=== PATIENT | female | born 1970 | race American Indian/Alaskan Native ===

== ENCOUNTER 2016-07-24 14:48 | Outpatient (CLI) | payer OTHER ==
--- NOTE | 2016-07-25 13:39 | Mammography Report ---
BILATERAL DIGITAL SCREENING MAMMOGRAM with CAD: 07/24/16 14:48:00 CLINICAL: Routine screening. COMPARISON:None available. FINDINGS: The breasts are heterogeneously dense, which may obscure small masses. No mass, architectural distortion or suspicious calcifications. IMPRESSION: No mammographic evidence of malignancy. BI-RADS CATEGORY: 1 - - Negative RECOMMENDATION: Routine mammographic screening in one year. COMMENT: Patient follow-up letters are generated by our [employer] application. The
== END 2016-07-24 14:49 | disposition home or self-care (01) ==
LOC: SPVWC 14:48
PROVIDERS: ATTEND Internal Medicine Hematology & Oncology
DX: Z12.31 Encounter for screening mammogram for malignant neoplasm of breast (principal)
CPT/HCPCS: 77067; G0202

== ENCOUNTER 2017-09-24 13:38 | Outpatient (CLI) | payer BC ==
--- NOTE | 2017-09-24 14:58 | Mammography Report ---
BILATERAL MAMMOGRAM: FINDINGS: The breast tissue is extremely dense (>75% glandular). This may lower the sensitivity of mammography. No mass, distortion, suspicious calcification, or skin change is seen. No significant change compared to prior examination in July 2016. CAD was utilized. IMPRESSION: Negative mammogram. There is no mammographic evidence of malignancy. RECOMMENDATION: Follow-up per ACS guidelines. BI-RADS CATEGORY: 1 = Negative ACR BI-RADS MAMMOGRAPHIC CODES: 0 = Needs additional imaging evaluation; 1 = Negative; 2 = Benign; 3 = Probably benign; 4 = Suspicious; 5 = Malignant; 6 = Known biopsy-proven malignancy COMMENT: 1. Dense breast tissue, i.e., adenosis, fibrocystic changes, etc., may obscure an underlying neoplasm. 2. Approximately 10% of cancers are not detected with mammography. 3. A negative mammography report should not delay biopsy if a clinically suspicious mass is present. COMMENT: Patient follow-up letters are generated in [employer].
== END 2017-09-24 13:39 | disposition home or self-care (01) ==
LOC: SPVWC 13:38
PROVIDERS: ATTEND Obstetrics & Gynecology
DX: Z12.31 Encounter for screening mammogram for malignant neoplasm of breast (principal)
CPT/HCPCS: 77067

== ENCOUNTER 2017-09-30 06:52 | Observation (INO) | payer BC ==
[2017-09-30 08:17] LABS: Basophils % (Auto) 0.4 % (0.0-1.8); Eosinophils % (Auto) 0.5 % (0.0-4.3); Hematocrit 21.2 % (30.3-42.9); Lymphocytes # (Auto) 1.2 K/mm3 (1.2-5.4); Lymphocytes % (Auto) 11.6 % (13.4-35.0); Mean Corpuscular HGB Conc 33 % (30-34); Mean Corpuscular Hemoglobin 29 pg (28-32); Mean Corpuscular Volume 88 fl (79-97); Monocytes # (Auto) 0.5 K/mm3 (0.0-0.8); Platelet Count 405 K/mm3 (140-440); Red Blood Count 2.41 M/mm3 (3.65-5.03); Red Cell Distribution Width 17.5 % (13.2-15.2)
--- NOTE | 2017-09-30 10:27 | Emergency Department Report ---
ED General Adult HPI - General Chief complaint: Vaginal Bleeding Stated complaint: STOMACH PAIN Time Seen by Provider: 09/30/17 10:20 Source: patient, family Mode of arrival: Ambulatory Limitations: No Limitations - History of Present Illness Initial comments: 47 year old female with recurrent vaginal bleeding symptoms of anemia, weakness and dyspnea on exertion. Patient states that she has been taking her Provera since her discharge the beginning of the month for the same. She was transfused 2 units of blood. She was symptomatic with hemoglobin of 8.4 at that time. She was found to have a hemoglobin of 7 today. She was referred to Dr. Clements and transfused in the emergency department. Patient states that she has been having periodic bleeding today. She is not actively bleeding at the time of my encounter but has passed some clots earlier. She had some nausea and vomited once in the waiting room. -: Gradual Consistency: intermittent (vaginal bleeding) Improves with: none Worsens with: none Associated Symptoms: denies other symptoms, weakness Treatments Prior to Arrival: none - Related Data Previous Rx's Medication Instructions Recorded Last Taken Type Ferrous Sulfate [Iron] 325 mg PO BID #60 tablet 09/11/17 Unknown Rx medroxyPROGESTERone ACETATE 10 mg PO BID #20 tablet 09/11/17 Unknown Rx [Provera] Allergies Allergy/AdvReac Type Severity Reaction Status Date / Time No Known Allergies Allergy Verified 09/10/17 23:18 ED Review of Systems ROS: Stated complaint: STOMACH PAIN Other details as noted in HPI Constitutional: denies: chills, fever Eyes: denies: eye pain, eye discharge, vision change ENT: denies: ear pain, throat pain Respiratory: denies: cough, shortness of breath, wheezing Cardiovascular: denies: chest pain, palpitations Endocrine: no symptoms reported Gastrointestinal: denies: abdominal pain, nausea, diarrhea Genitourinary: as per HPI, abnormal menses. denies: urgency, dysuria, discharge Musculoskeletal: denies: back pain, joint swelling, arthralgia Skin: denies: rash, lesions Neurological: denies: headache, weakness, paresthesias Psychiatric: denies: anxiety, depression Hematological/Lymphatic: denies: easy bleeding, easy bruising ED Past Medical Hx - Past Medical History Additional medical history: anemia, fibroids,ovarian cyst - Surgical History Additional Surgical History: D&C,nodules on vocal cords - Social History Smoking Status: Never Smoker - Medications Home Medications: Home Medications Medication Instructions Recorded Confirmed Last Taken Type Ferrous Sulfate [Iron] 325 mg PO BID #60 tablet 09/11/17 Unknown Rx medroxyPROGESTERone ACETATE 10 mg PO BID #20 tablet 09/11/17 Unknown Rx [Provera] ED Physical Exam - General Limitations: No Limitations General appearance: alert, in no apparent distress, other (somewhat pale) - Head Head exam: Present: atraumatic, normocephalic - Eye Eye exam: Present: normal appearance, PERRL, EOMI. Absent: scleral icterus - ENT ENT exam: Present: mucous membranes moist - Neck Neck exam: Present: normal inspection - Respiratory Respiratory exam: Present: normal lung sounds bilaterally. Absent: respiratory distress - Cardiovascular Cardiovascular Exam: Present: regular rate, normal rhythm. Absent: systolic murmur, diastolic murmur, rubs, gallop - GI/Abdominal GI/Abdominal exam: Present: soft, normal bowel sounds. Absent: distended, tenderness, guarding, rebound, rigid - Extremities Exam Extremities exam: Present: normal inspection - Back Exam Back exam: Present: normal inspection - Neurological Exam Neurological exam: Present: alert, oriented X3, CN II-XII intact. Absent: motor sensory deficit - Psychiatric Psychiatric exam: Present: normal affect, normal mood - Skin Skin exam: Present: warm, dry, intact, normal color. Absent: rash ED Course Vital Signs 09/30/17 09/30/17 09/30/17 07:39 11:39 11:56 Temperature 97.5 F L 98.4 F 98.5 F Pulse Rate 82 90 87 Respiratory 16 18 18 Rate Blood Pressure 94/69 115/72 115/70 O2 Sat by Pulse 98 100 99 Oximetry 09/30/17 09/30/17 12:30 12:50 Temperature 98.5 F 98.4 F Pulse Rate 87 89 Respiratory 18 18 Rate Blood Pressure 119/71 120/55 O2 Sat by Pulse 100 99 Oximetry - Reevaluation(s) Reevaluation #1: I spoke with Dr. Clements. Transfusion was ordered. Patient was admitted by Dr. Clements for further care and evaluation. He stated he had spoken to the patient recently. He will check the patient's records and decide on hormonal intervention at this time. 09/30/17 19:31 ED Medical Decision Making - Lab Data Result diagrams: 09/30/17 16:06 09/30/17 10:43 Laboratory Results - last 24 hr 09/30/17 09/30/17 09/30/17 07:55 07:55 07:55 WBC 10.5 RBC 2.41 L Hgb 7.0 L Hct 21.2 L MCV 88 MCH 29 MCHC 33 RDW 17.5 H Plt Count 405 Lymph % (Auto) 11.6 L [place] % (Auto) 5.0 Eos % (Auto) 0.5 Baso % (Auto) 0.4 Lymph # 1.2 [place] # 0.5 Eos # 0.0 Baso # 0.0 Seg Neutrophils % 82.5 H Seg Neutrophils # 8.7 H HCG, Quant < 2 Blood Type O POSITIVE Antibody Screen Negative Critical care attestation.: If time is entered above; I have spent that time in minutes in the direct care of this critically ill patient, excluding procedure time. ED Disposition Clinical Impression: Dysfunctional uterine bleeding Anemia Qualifiers: Anemia type: iron deficiency Iron deficiency anemia type: chronic blood loss Qualified Code(s): D50.0 - Iron deficiency anemia secondary to blood loss ( chronic) Disposition: OP ADMIT IP TO THIS HOSP Is pt being admited?: Yes Does the pt Need Aspirin: No Condition: Stable Time of Disposition: 19:33
[2017-09-30] MEDS ORDERED: NACL 0.9% 1000 ML 1,000 ML IV ONE (10:28)
[2017-09-30] MEDS ORDERED: NACL 0.9% 500 ML 500 ML IV ONE ×2 (10:28→19:00)
[2017-09-30] MEDS ORDERED: ZOFRAN IV ONE (10:54)
[2017-09-30 11:01] LABS: INR 0.93 (0.87-1.13); Partial Thromboplastin Time 22.9 Sec. (24.2-36.6)
[2017-09-30 11:09] LABS: Alanine Aminotransferase 11 units/L (7-56); Albumin 3.7 g/dL (3.9-5); BUN/Creatinine Ratio 10; Blood Urea Nitrogen 6 mg/dL (7-17); Calcium 8.6 mg/dL (8.4-10.2); Hemolysis Index 2
--- NOTE | 2017-09-30 11:23 | XRay Report ---
AP CHEST :09/30/17 10:33 CLINICAL: Hypotension. COMPARISON:None. FINDINGS: Normal heart and pulmonary vasculature. The lungs are normally expanded and clear. The bones and soft tissues are normal. IMPRESSION: Normal chest.
[2017-09-30 11:30] LABS: Bilirubin,Direct < 0.2 mg/dL (0-0.2)
[2017-09-30] MEDS ORDERED: MOTRIN PO PRN ×2 (15:35→15:39)
[2017-09-30] MEDS ORDERED: TYLENOL PO PRN (15:35)
[2017-09-30] MEDS ORDERED: SODIUM CHLORIDE FLUSH SYRINGE 10 ML IV PRN (15:35)
[2017-09-30] MEDS ORDERED: NACL 0.9% 1000 ML 1,000 ML IV SCH (15:35)
[2017-09-30] MEDS ORDERED: ZOFRAN IV PRN (15:35)
[2017-09-30] MEDS ORDERED: PREMARIN IV ONE (16:00)
[2017-09-30 16:16] LABS: Hematocrit 24.6 % (30.3-42.9); Hemoglobin 7.8 gm/dl (10.1-14.3)
--- NOTE | 2017-09-30 18:26 | History and Physical Report ---
History of Present Illness Date of examination: 09/30/17 Date of admission: 09/30/17 13:43 History of present illness: 47 YOBF [id number] was recently discharged from the hospital due to menometrorrhagia and severe anemia less than 3 weeks ago. At that time she received 2 units of packed red blood cells and discharge on Provera. Patient has been on Provera since states that had continuous bleeding which became heavy days ago states last night she got lightheaded and briefly lost consciousness and was brought to the emergency room where her hemoglobin was 7.0 last recorded hemoglobin was 11.4. Patient with history of heavy menstrual cycles and leiomyomata. Patient received 1 unit of packed red blood cells in the emergency room with resultant hemoglobin 7.8 patient still symptomatic with lightheadedness and during the hospital bed and be admitted for additional units of packed red blood cells. Past History Past Medical History: other (leiomyomata) Past Surgical History: Other (D&C) Social history: , full code Medications and Allergies Allergies Allergy/AdvReac Type Severity Reaction Status Date / Time No Known Allergies Allergy Verified 09/10/17 23:18 Home Medications Medication Instructions Recorded Confirmed Last Taken Type Ferrous Sulfate [Iron] 325 mg PO BID #60 tablet 09/11/17 Unknown Rx medroxyPROGESTERone ACETATE 10 mg PO BID #20 tablet 09/11/17 Unknown Rx [Provera] Active Meds: Active Medications Acetaminophen (Tylenol) 650 mg PO Q4H PRN PRN Reason: Pain MILD(1-3)/Fever >100.5/MARTIN Docusate Sodium (Colace) 100 mg PO BID MARIEL Ferrous Sulfate (Feosol) 325 mg PO BID [facility] Sodium Chloride (Nacl 0.9% 1000 Ml) 1,000 mls @ 100 mls/hr IV DIRECT MARIEL Last Admin: 09/30/17 16:31 Dose: 100 mls/hr Ibuprofen (Motrin) 800 mg PO Q6H PRN PRN Reason: Pain, Mild (1-3) Ondansetron HCl (Zofran) 4 mg IV Q8H PRN PRN Reason: Nausea And Vomiting Sodium Chloride (Sodium Chloride Flush Syringe 10 Ml) 10 ml IV BID MARIEL Sodium Chloride (Sodium Chloride Flush Syringe 10 Ml) 10 ml IV PRN PRN PRN Reason: LINE FLUSH Review of Systems Constitutional: no weight loss, no fever, no chills, no anorexia Cardiovascular: shortness of breath (now resolved) Genitourinary Female: menorrhagia Menstruation: currently menstrual Psychiatric: anxiety Exam - Constitutional Vitals: Temp Pulse Resp BP Pulse Ox 98.3 F 95 H 18 122/63 99 09/30/17 15:45 09/30/17 15:45 09/30/17 15:45 09/30/17 15:45 09/30/17 12:50 General appearance: Present: no acute distress - Neck Neck: Present: supple - Respiratory Respiratory effort: normal - Cardiovascular Rhythm: regular - Extremities Extremities: no ischemia - Abdominal General gastrointestinal: Present: soft, non-tender Female genitourinary: Present: other (small to moderate amount of blood and pad manual exam deferred) - Rectal Rectal Exam: deferred - Integumentary Integumentary: Present: clear, warm, dry - Psychiatric Psychiatric: appropriate mood/affect, intact judgment & insight Results - Labs CBC & Chem 7: 09/30/17 16:06 09/30/17 10:43 Labs: Abnormal lab results 09/30/17 09/30/17 09/30/17 Range/Units 07:55 07:55 10:43 RBC 2.41 L (3.65-5.03) M/mm3 Hgb 7.0 L (10.1-14.3) gm/dl Hct 21.2 L (30.3-42.9) % RDW 17.5 H (13.2-15.2) % Lymph % (Auto) 11.6 L (13.4-35.0) % Seg Neutrophils % 82.5 H (40.0-70.0) % Seg Neutrophils # 8.7 H (1.8-7.7) K/mm3 APTT 22.9 L (24.2-36.6) Sec. BUN (7-17) mg/dL Creatinine (0.7-1.2) mg/dL Glucose (65-100) mg/dL Albumin (3.9-5) g/dL Crossmatch See Detail 09/30/17 09/30/17 Range/Units 10:43 16:06 RBC (3.65-5.03) M/mm3 Hgb 7.8 L (10.1-14.3) gm/dl Hct 24.6 L (30.3-42.9) % RDW (13.2-15.2) % Lymph % (Auto) (13.4-35.0) % Seg Neutrophils % (40.0-70.0) % Seg Neutrophils # (1.8-7.7) K/mm3 APTT (24.2-36.6) Sec. BUN 6 L (7-17) mg/dL Creatinine 0.6 L (0.7-1.2) mg/dL Glucose 150 H (65-100) mg/dL Albumin 3.7 L (3.9-5) g/dL Crossmatch Assessment and Plan - Patient Problems (1) Fibroids Current Visit: Yes Status: Chronic Qualifiers: Uterine leiomyoma location: intramural Qualified Code(s): D25.1 - Intramural leiomyoma of uterus Plan to address problem: Possible etiology problem 3 (2) Symptomatic anemia Current Visit: Yes Status: Chronic Plan to address problem: l secondary to some problem 3. Transfuse additional 2 units of packed red blood cells (3) Excessive and frequent menstruation with irregular cycle Current Visit: Yes Status: Chronic Plan to address problem: We'll give IV Premarin. Patient has failed outpatient treatment with Provera on 2 separate occasion. Discussed with the patient and is temporary treatment for symptoms. Discussed long-term treatment including hormonal treatments, endometrial ablation and operative treatment for her fibroids including myomectomy and hysterectomy. Patient expressed desire to become . Patient has been seeing a vending machine mechanic in the past. I expressed to the patient that she needs to quickly follow-up if her goal is to become soon. Also discussed other treatments which will decreased her ability to become . Questions answered patient understands and will follow-up as outpatient.
[2017-09-30] MEDS ORDERED: BENADRYL PO ONE ×2 (20:17→20:30)
[2017-09-30 21:14] LABS: Bilirubin,Urine NEG (Negative); Blood,Urine LG (Negative); Protein,Urine <15 mg/dL mg/dL (Negative); Urobilinogen,Urine < 2.0 mg/dL (<2.0)
[2017-09-30 21:15] LABS: Color,Urine Red (Yellow); RBC,Urine > 182.0 /HPF (0.0-6.0)
[2017-09-30] MEDS ORDERED: SODIUM CHLORIDE FLUSH SYRINGE 10 ML IV SCH (22:00)
[2017-09-30] MEDS: FEOSOL PO SCH (22:40)
[2017-09-30] MEDS: COLACE PO SCH (22:40)
[2017-10-01 05:57] LABS: Hematocrit 30.8 % (30.3-42.9); Hemoglobin 10.2 gm/dl (10.1-14.3)
[2017-10-01] MEDS: COLACE PO SCH ×2 (10:00→22:48)
--- NOTE | 2017-10-01 10:30 | Discharge Summary ---
Providers - Providers Date of Admission: 09/30/17 13:43 Attending physician: KAT NG Primary care physician: BACTERIOLOGIST SOIL Hospitalization Condition at discharge: Good Disposition: DC-01 TO HOME OR SELFCARE Plan - Provider Discharge Summary Additional instructions: [] Smoking cessation referral if applicable(refer to patient education folder for contact #) [] Refer to [facility] Booklet Call your doctor immediately for: * Fever > 100.5 * Heavy vaginal bleeding ( >1 pad per hour) * Severe persistent headache * Shortness of breath * Reddened, hot, painful area to leg or breast * Drainage or odor from incision. * Keep incision clean and dry at all times and follow doctor's instructions regarding bathing/showering - Follow up plan Follow up: PRIMARY CARE, [Primary Care Provider] - 3-5 Days
--- NOTE | 2017-10-01 10:38 | Discharge Summary ---
Providers - Providers Date of Admission: 09/30/17 13:43 Date of discharge: 10/01/17 Attending physician: KAT NG Primary care physician: SCIENTIFIC PROGRAMMER Hospitalization Reason for admission: other (vaginal bleeding/ menorrhagia) Procedure details: nonw Discharge diagnosis: other (menorrhagia, anemia) Hospital course: Pt presented with sx of anemia and vaginal bleeding. Pt s/p 3 units of PRBC and premarin with improvement in sx this am. She states she desires d/c to home. Pt is to f/u with Dr. Wallis to determine what treatment the pt george want at this time. Condition at discharge: Good Disposition: DC-01 TO HOME OR SELFCARE - Discharge Diagnoses (1) Anemia Status: Acute Qualifiers: Anemia type: iron deficiency Iron deficiency anemia type: chronic blood loss Qualified Code(s): D50.0 - Iron deficiency anemia secondary to blood loss (chronic) (2) Dysfunctional uterine bleeding Status: Acute (3) Excessive and frequent menstruation with irregular cycle Status: Chronic (4) Fibroids Status: Chronic Qualifiers: Uterine leiomyoma location: intramural Qualified Code(s): D25.1 - Intramural leiomyoma of uterus (5) Symptomatic anemia Status: Chronic (6) Menorrhagia Status: Acute (7) Infertility Status: Chronic Plan - Provider Discharge Summary Additional instructions: [] Smoking cessation referral if applicable(refer to patient education folder for contact #) [] Refer to [facility] Booklet Call your doctor immediately for: * Fever > 100.5 * Heavy vaginal bleeding ( >1 pad per hour) * Severe persistent headache * Shortness of breath * Reddened, hot, painful area to leg or breast * Drainage or odor from incision. * Keep incision clean and dry at all times and follow doctor's instructions regarding bathing/showering - Follow up plan Follow up: PRIMARY CARE, [Primary Care Provider] - 3-5 Days
--- NOTE | 2017-10-01 14:17 | Event Note ---
Date: 10/01/17 Pt states that she would like to stay in the hospital at this time as she bleeding is still heavy. She did not inform me of this when I made round earlier.She inquired about a D&C and risk including hysterectomy and scarring making conception difficult were d/w pt. Pt expressed understanding. I also advised that if she if she is responding to medications, she does not need intrumentation. Pt wants to remain in house and speak with Dr. Wallis in the am regarding her options in terms of treatment in the the face of getting . All questions were addressed and answered.
--- NOTE | 2017-10-01 17:40 | Event Note ---
Date: 10/01/17 Pt bleeding is improving and has minimal blood on padding she has on. Will con' t with the premarin at this time and plan to d/c home on ocp taper. I have spent several minutes d/w treatment options and she desires this at this time with continued ocps until she tries to concieve again. I advsied that her records with the embx results and sono have not come to or office yet from provider in [place] [facility] and that until that time we won't be able to determine how to further advise given the size of the fibroids and position of the fibroids are not known. Pt expressed understanding and questions were addressed and answerd.
[2017-10-01] MEDS: PREMARIN IV SCH (18:30)
[2017-10-01] MEDS: PEPCID PO SCH (21:18)
[2017-10-01] MEDS: FEOSOL PO SCH (22:48)
[2017-10-02] MEDS ORDERED: WATER FOR INJ (PF) 10 ML ONE (02:29)
[2017-10-02] MEDS: PREMARIN IV SCH (02:52)
[2017-10-02] MEDS ORDERED: PREMARIN IV SCH (03:00)
--- NOTE | 2017-10-02 08:32 | Discharge Summary ---
Providers - Providers Date of Admission: 09/30/17 13:43 Date of discharge: 10/02/17 Attending physician: KAT NG Primary care physician: POLE CUTTER Hospitalization Condition: Good Hospital course: See history. She was given 2 doses of Premarin IV and receiveed 3units PRBCs with an appropriate rise of her H/H and decreased bleeding. VSS. She desires fertility however has not made an appointment with [facility] as recommended. She was informed of the dangers and risks associated with severe anemia and repeat PRBC' s. She was also informed if such bleeding continues she may require a hysterectomy. Any conservative surgical options may further decrease her ability to get by causing adhesions, perforation, infection or subsequent hysterectomy. She will attempt to obtain the EMB performed a few weeks ago by her previous information assistant and will bring the report to the office on . She agrees to d/c home now and will start PATRIA's to attempt to control her bleeding and she will proceed with HSG and [facility] consultation. Disposition: TO HOME OR SELFCARE - Discharge Diagnoses (1) Anemia Status: Chronic Qualifiers: Anemia type: iron deficiency Iron deficiency anemia type: chronic blood loss Qualified Code(s): D50.0 - Iron deficiency anemia secondary to blood loss (chronic) (2) Excessive and frequent menstruation with irregular cycle Status: Chronic (3) Fibroids Status: Chronic Qualifiers: Uterine leiomyoma location: intramural Qualified Code(s): D25.1 - Intramural leiomyoma of uterus (4) Infertility Status: Chronic Core Measure Documentation - Palliative Care Palliative Care/ Comfort Measures: Not Applicable - Core Measures Any of the following diagnoses?: none Exam - Constitutional Vitals: Temp Pulse Resp BP Pulse Ox 98.1 F 90 18 110/70 98 10/02/17 05:24 10/02/17 05:24 10/02/17 05:24 10/02/17 05:24 10/02/17 05:24 General appearance: Present: no acute distress - Respiratory Respiratory effort: normal Respiratory: negative: CTA - Cardiovascular Rhythm: regular - Extremities Extremities: no ischemia, No edema - Abdominal General gastrointestinal: Present: soft, non-tender, non-distended, normal bowel sounds Female genitourinary: Present: other (states she just changed her pad) - Integumentary Integumentary: Present: clear, warm, dry - Psychiatric Psychiatric: appropriate mood/affect - Neurologic Neurologic: moves all extremities Plan Activity: other (No sex, stay at home until appointment scheduled for . No driving. Call the office for any problems or concerns) Weight Bearing Status: Weight Bear as Tolerated Diet: regular (Continue iron twice a day and a stool softener daily) Special Instructions: no heavy lifting Additional Instructions: Her prescription for control have been sent to [facility] Follow up with: BEBETO ESTEBAN MD [Primary Care Provider] - 3-5 Days EDITH WILCOX MD [Staff Physician] - 10/04/17 9:00 am ([place]) Forms: [facility] Discharge Summary, Discharge Signature Page
[2017-10-02] MEDS: COLACE PO SCH (09:13)
[2017-10-02] MEDS: FEOSOL PO SCH (09:13)
[2017-10-02] MEDS: PEPCID PO SCH (09:14)
[2017-10-02 14:16] VITALS: BP 114/71
== END 2017-10-02 14:00 | disposition home or self-care (01) ==
LOC: ED 06:52 → OB 13:43
PROVIDERS: ADMIT Obstetrics & Gynecology; ATTEND Obstetrics & Gynecology
DX: N92.1 Excessive and frequent menstruation with irregular cycle (principal); D25.1 Intramural leiomyoma of uterus; D50.0 Iron deficiency anemia secondary to blood loss (chronic); N93.8 Other specified abnormal uterine and vaginal bleeding; N97.9 Female infertility, unspecified
CPT/HCPCS: 36415; 36430; 71045; 80048; 80074; 81001; 83735; 83880; 84702; 85014; 85018; 85025; 85610; 85730; 86850; 86900; 86901; 86920; 96374; 96375; 96376; 99285; G0378; J1410; J2405; J7030; J7040; P9016

== ENCOUNTER 2017-11-13 09:59 | Day surgery (SDC) | payer BC ==
--- NOTE | 2017-11-12 12:36 | Anesthesia Consultation ---
Anesthesia Consult and Med Hx Date of service: 11/12/17 - Airway Anesthetic Teeth Evaluation: Good ROM Head & Neck: Adequate Mallampati Class: Class I Intubation Access Assessment: Good - Pulmonary Exam CTA: Yes - Cardiac Exam Cardiac Exam: RRR - Pre-Operative Health Status ASA Pre-Surgery Classification: ASA1 Proposed Anesthetic Plan: General - Pulmonary Hx Asthma: No COPD: No Hx Pneumonia: No - Cardiovascular System Hx Heart Attack/AMI: Yes (grandmother) - Central Nervous System Hx Psychiatric Problems: No - Endocrine Hx End Stage Renal Disease: No - Hematic Hx Anemia: Yes Hx Sickle Cell Disease: No - Other Systems Hx Cancer: No
[2017-11-12 13:26] LABS: Basophils % (Auto) 1.4 % (0.0-1.8); Eosinophils # (Auto) 0.1 K/mm3 (0.0-0.4); Eosinophils % (Auto) 4.2 % (0.0-4.3); Hematocrit 30.8 % (30.3-42.9); Hemoglobin 9.7 gm/dl (10.1-14.3); Lymphocytes # (Auto) 1.2 K/mm3 (1.2-5.4); Lymphocytes % (Auto) 41.8 % (13.4-35.0); Mean Corpuscular HGB Conc 32 % (30-34); Mean Corpuscular Hemoglobin 30 pg (28-32); Mean Corpuscular Volume 94 fl (79-97); Monocytes # (Auto) 0.4 K/mm3 (0.0-0.8); Platelet Count 478 K/mm3 (140-440); Red Blood Count 3.29 M/mm3 (3.65-5.03); Red Cell Distribution Width 13.9 % (13.2-15.2)
--- NOTE | 2017-11-12 19:09 | History and Physical Report ---
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: D&C: (2008) largyneal nodules removed EGD Abnormal PAP: negative Uterine Anomaly: positive fibroids Infection History HIV Risk Eval: no Hx of STD: None Active Medications (reviewed today): PLUS 27-1 MG ORAL TABLET ( VIT-FE FUMARATE-FA) 1 po daily IRON SUPPLEMENT TABLET (FERROUS SULFATE TABS) T1PO QD MICROGESTIN FE 06/30 1-20 MG-MCG ORAL TABLET (NORETHIN DOUGLAS-ETH ESTRAD-FE) 1 tab po qd Current Allergies (reviewed today): No known allergies Past Medical History: Reviewed history from 09/30/2017 and no changes required: Blood Transfusion (09/30/2017) 3 units Past Surgical History: Reviewed history from 09/20/2017 and no changes required: D&C: (2008) largyneal nodules removed EGD Social History: Reviewed history from 09/20/2017 and no changes required: Patient is Smoking History: Patient has never smoked. Risk Factors: Smoked Tobacco Use: Never smoker Smokeless Tobacco Use: Never Drug use: no HIV high-risk behavior: no Alcohol use: no Exercise: no Seatbelt use: 100 % PAP Smear History: Date of Last PAP Smear: 09/20/2017 Previous Tobacco Use: Signed On - 09/20/2017 Smoked Tobacco Use: Never smoker Smokeless Tobacco Use: Never Drug use: no HIV high-risk behavior: no Previous Alcohol Use: Signed On - 09/20/2017 Alcohol use: no Exercise: yes Seatbelt use: 0 % Mammogram History: Date of Last Mammogram: 08/09/2016 PAP Smear History: Date of Last PAP Smear: 09/20/2017 Physical Exam Other Exams Lungs: no rales, rhonchi, or wheezes Heart: S1, S2, no murmur, rub, or gallop Abdomen: soft, non-tender, no masses Skin: no ulcers, xanthomas Extremities: normal alignment, no joint enlargement, crepitus, masses or tenderness; normal tone and strength Genitourinary Exam Vagina: normal appearance, no discharge, lesions. No evidence of cystocele or rectocele. Cervix: normal appearance, no lesions, no discharge Uterus: normal position, midline, mobile Adnexa: no masses or tenderness Impression & Recommendations: Problem # 1: Excessive and frequent menstruation with regular cycle (ICD-626.2 ) (HXY71-N25.0) Diagnosis explained to patient . Questions answered. Discussed with patient various medical and surgical therapies common for treatment: Hormonal/medical therapy,endometrial ablation or hysterectomy. She desires hysteroscopy D&C, limitations of this procedure explained. Consent reviewed and signed . Possible laparoscopy or laparotomy explained to patient. The risks and alternatives for this surgery were reviewed with the patient. She was informed of possible bleeding, infection, injury to bowel, bladder, ureters or other adjacent organs. She was informed she may require ahysterectomy if bleeding occurs that cannot be controlled also after surgery she may develop intrauterine adhesions or infection that may prevent . The patient was instructed/informed the following: The normal length of hospital stay for this procedure. Nothing to eat or drink after midnight the evening prior to surgery. Clear liquids the night prior to surgery. Pre-op instruction sheets given. Wound care instructions given. Infection precautions reviewed, patient to call for any signs or symptoms of infection. The usual discomforts associated with this procedure were detailed. Proper use of pain medicines was reviewed. Patient was given ample opportunity to have all her questions answered before signing informed consent. Problem # 2: Fibroids of uterus; Intramural (ICD-218.1) (DOM91-B61.1) Diagnosis explained to patient . Questions answered. Discussed with patient various medical, surgical and radioloigal therapies common for treatment: Hormonal/medical therapy, fibroid embolization, removal of fibroids or hysterectomy Problem # 3: Female infertility (ICD-628.9) (GHC31-E54.9) Again encouarged to call Dr. Hsu to schedule a consultation The following medications were removed from the medication list: Microgestin Fe 06/30 1-20 Mg-mcg Oral Tablet (Norethin douglas-eth estrad-fe) ..... 1 tab po qd Her updated medication list for this problem includes: Plus 27-1 Mg Oral Tablet ( vit-fe fumarate-fa) ..... 1 po daily Medications Added to Medication List This Visit: 1) Ibuprofen 600 Mg Oral Tablet (Ibuprofen) .... 1 po q6hrs as directed prn 2) Oxycodone-acetaminophen 5-325 Mg Oral Tablet (Oxycodone-acetaminophen) .... 1-2po q6h Prescriptions: IBUPROFEN 600 MG ORAL TABLET (IBUPROFEN) 1 po q6hrs as directed prn #30 x 1 Entered and Authorized by: Jess Wallis MD Method used: Print then Give to Patient RxID: [id number] OXYCODONE-ACETAMINOPHEN 5-325 MG ORAL TABLET (OXYCODONE-ACETAMINOPHEN) 1-2po q6h #10 Tablet x 0 Entered and Authorized by: Jess Wallis MD Method used: Print then Give to Patient RxID: [id number] Medications and Allergies Allergies Allergy/AdvReac Type Severity Reaction Status Date / Time No Known Allergies Allergy Verified 11/09/17 15:28 Home Medications Medication Instructions Recorded Confirmed Last Taken Type AtorvaSTATin [Lipitor] 20 mg PO QHS 11/09/17 11/09/17 Unknown History Ferrous Sulfate [Iron] 325 mg PO DAILY 11/09/17 11/09/17 Unknown History Pnv,Calcium 72/Iron/Folic Acid 1 tab PO DAILY 11/09/17 11/09/17 Unknown History [Preplus Ca-Fe 27 mg-FA 1 mg Tb] Active Meds: Active Medications Lactated Ringer's (Lactated Ringers) 1,000 mls @ 100 mls/hr IV DIRECT MARIEL Cefazolin Sodium (Ancef/Sterile Water 2 Gm/20 Ml) 2 gm in 20 mls @ 80 mls/hr IV PREOP NR; Protocol Stop: 11/13/17 06:01 Midazolam HCl (Versed) 2 mg IV PREOP NR Stop: 11/13/17 23:59 Exam Vital Signs Temp Pulse Resp BP 98.2 F 76 18 148/88 11/12/17 12:00 11/12/17 12:00 11/12/17 12:00 11/12/17 12:00 Results - Labs 11/12/17 12:05 Abnormal lab results 11/12/17 Range/Units 12:05 WBC 2.8 L (4.5-11.0) K/mm3 RBC 3.29 L (3.65-5.03) M/mm3 Hgb 9.7 L (10.1-14.3) gm/dl Plt Count 478 H (140-440) K/mm3 Lymph % (Auto) 41.8 H (13.4-35.0) % [place] % (Auto) 13.0 H (0.0-7.3) % Seg Neutrophils % 39.6 L (40.0-70.0) % Seg Neutrophils # 1.1 L (1.8-7.7) K/mm3 Assessment and Plan - Patient Problems (1) Anemia Status: Chronic Qualifiers: Iron deficiency anemia type: chronic blood loss (2) Excessive and frequent menstruation with irregular cycle Status: Acute (3) Fibroids Status: Chronic Qualifiers: Uterine leiomyoma location: subserous Qualified Code(s): D25.2 - Subserosal leiomyoma of uterus
[~2017-11-13 09:59] MED LIST: ANCEF/STERILE WATER 2 GM/20 ML 2 GM/20 ML SYRINGE IV NR; LACTATED RINGERS 1,000 ML IV SCH; VERSED IV NR
[2017-11-13] MEDS ORDERED: ANCEF/STERILE WATER 2 GM/20 ML 2 GM/20 ML SYRINGE IV NR (13:00)
[2017-11-13] MEDS ORDERED: DIPRIVAN 10 MG/ML IV ONE (13:15)
[2017-11-13] MEDS ORDERED: XYLOCAINE MPF 2% ONE (13:15)
[2017-11-13] MEDS ORDERED: VERSED ONE (14:42)
[2017-11-13] MEDS ORDERED: SUBLIMAZE ONE (14:43)
[2017-11-13] MEDS ORDERED: ZOFRAN ONE (14:53)
[2017-11-13] MEDS ORDERED: DECADRON ONE (14:53)
[2017-11-13] MEDS ORDERED: TORADOL ONE (14:53)
[2017-11-13] MEDS ORDERED: NACL 0.9% IR ONE ×2 (15:00)
--- NOTE | 2017-11-13 15:18 | Operative Report ---
Operative Report Operative Report: Date: 11/13/2017 Preoperative diagnosis: 1. Excessive and frequent menstruation with regular cycle 2. Uterine fibroids 3. Chronic anemia 4. Desires fertility 5. History of simple hyperplasia without atypia Postoperative diagnosis: 1. 1. Excessive and frequent menstruation with regular cycle 2. Uterine fibroids 3. Chronic anemia 4. Desires fertility 5. History of simple hyperplasia without atypia 6. Endometrial polyps . Procedure: 1. Cervical dilation 2. Diagnostic hysteroscopy 3. Uterine curettage Surgeon: Jess Wallis MD Flight Engineer Manager: [] Anesthesiologist: Artur Nicolas M.D. Anesthesia: Monitored anesthetic care EBL: Minimal Findings: Uterus was sounded to 11 cm. Normal tubal ostia noted. Small polyps noted on the anterior uterine wall. Distention medium: Normal saline Fluid deficit: 180 mL Procedure: After risks, benefits, complications, consequences and alternatives for this procedure were explained, and patient voiced her understanding and her desire to proceed, she is taken to the OR and placed in the supine position. General anesthesia was induced. She was placed in the dorsolithotomy position. Exam under anesthesia was unremarkable. She was then prepped and draped in usual sterile fashion. Timeout was performed. A Contreras catheter was introduced into the bladder with drainage of clear yellow urine. A operative speculum was introduced was introduced into the vagina. The anterior lip of the cervix was grasped with single-tooth tenaculum and the uterus was sounded to11 cm. The cervix was progressively dilated to allow the hysteroscope. The above findings were noted. Uterine curettage was then performed. Hysteroscope was introduced Into the cavity, no further polyps or other lesions were noted. No evidence of perforation was noted. The procedure was ended. The speculum and the tenaculum were removed. Hemostasis was noted. The Contreras catheter was removed. No bleeding from the tenaculum site was noted. Clear yellow urine was draining into the Contreras catheter at the end of the procedure. Patient tolerated procedure well and taken to recovery room in stable condition
--- NOTE | 2017-11-13 15:35 | Discharge Summary ---
Providers - Providers Date of discharge: 11/13/17 Attending physician: EDITH WILCOX Primary care physician: MELQUIADES WU Hospitalization Condition: Good Procedures: see operative report Hospital course: unremarkable Disposition: DC-[id number] TO HOME OR SELFCARE - Discharge Diagnoses (1) Anemia Status: Chronic Qualifiers: Iron deficiency anemia type: chronic blood loss (2) Excessive and frequent menstruation with irregular cycle Status: Acute (3) Fibroids Status: Chronic Qualifiers: Uterine leiomyoma location: subserous Qualified Code(s): D25.2 - Subserosal leiomyoma of uterus Core Measure Documentation - Palliative Care Palliative Care/ Comfort Measures: Not Applicable - Core Measures Any of the following diagnoses?: none Exam - Constitutional Vitals: Temp Pulse Resp BP Pulse Ox 97.3 F L 71 18 105/75 100 11/13/17 12:39 11/13/17 12:39 11/13/17 12:39 11/13/17 12:39 11/13/17 12:39 General appearance: Present: no acute distress - Respiratory Respiratory effort: normal - Cardiovascular Rhythm: regular Plan Activity: other (no sex) Weight Bearing Status: Full Weight Bearing Diet: regular Follow up with: MELQUIADES WU MD [Primary Care Provider] - 7 Days EDITH WILCOX MD [Staff Physician] - (as scheduled)
--- NOTE | 2017-11-13 16:10 | Anesthesia Day of Surgery ---
Anesthesia Day of Surgery - Day of Surgery Patient Examined: Yes Patient H&P Reviewed: Yes Patient is NPO: Yes
--- NOTE | 2017-11-13 16:11 | Post Anesthesia Evaluation ---
- Post Anesthesia Evaluation Patient Participated: Yes Airway Patent: Yes Stable Respiratory Function: Yes Nausea/Vomiting: No Temp > 96.8F: Yes Pain Manageable: Yes Adequeate Hydration: Yes Anesthesia Complications: No
[2017-11-13 19:24] VITALS: BP 135/73
== END 2017-11-13 18:10 | disposition home or self-care (01) ==
LOC: OR 09:59
PROVIDERS: ATTEND Obstetrics & Gynecology
DX: D25.2 Subserosal leiomyoma of uterus (principal); N84.0 Polyp of corpus uteri; D64.89 Other specified anemias; E78.00 Pure hypercholesterolemia, unspecified; E66.9 Obesity, unspecified; Z68.31 Body mass index [BMI] 31.0-31.9, adult
CPT/HCPCS: 36415; 58558; 81025; 85025; 88305; A4217; J0690; J1100; J1885; J2250; J2405; J2704; J3010; J7120